=== PATIENT | female | born 1945 | race Caucasian/White ===

== ENCOUNTER → 2019-05-03 | Outpatient (CLI) | payer MEDICARE, OTHER | END | disposition home or self-care (01) | LOC: RAH 12:39 | PROVIDERS: ATTEND Family Medicine | DX: R92.1 Mammographic calcification found on diagnostic imaging of breast (principal) | CPT/HCPCS: 77066 ==

== ENCOUNTER → 2020-05-21 | Outpatient (CLI) | payer MEDICARE | END | disposition home or self-care (01) | LOC: RAH 07:51 | PROVIDERS: ATTEND Family Medicine | DX: Z12.31 Encounter for screening mammogram for malignant neoplasm of breast (principal) | CPT/HCPCS: 77067 ==

== ENCOUNTER → 2022-06-22 | Outpatient (CLI) | payer MEDICARE | END | disposition home or self-care (01) | LOC: OIH 10:24 | PROVIDERS: ATTEND Student in an Organized Health Care Education/Training Program | DX: R06.02 Shortness of breath (principal) | CPT/HCPCS: 93306 ==

== ENCOUNTER → 2022-08-04 | Outpatient (CLI) | payer MEDICARE ==
[~2022-08-04] MED LIST: IOHEXOL 350 MG/ML 100ML INFUS..BTL IV ONE
== END | disposition home or self-care (01) ==
LOC: RAH 09:49
PROVIDERS: ATTEND Student in an Organized Health Care Education/Training Program
DX: R07.9 Chest pain, unspecified (principal)
CPT/HCPCS: 75574; Q9967

== ENCOUNTER → 2024-07-05 | Outpatient (CLI) | payer MEDICARE | END | disposition home or self-care (01) | LOC: RAH 08:56 | PROVIDERS: ATTEND Family Medicine | DX: Z12.31 Encounter for screening mammogram for malignant neoplasm of breast (principal) | CPT/HCPCS: 77067 ==

== ENCOUNTER → 2024-12-14 | Outpatient (CLI) | payer MEDICARE ==
--- NOTE | 2024-12-18 17:01 | HMCSR ---
APPROVED REPORT Laterality: Bilateral Indications R09.89 Doppler Spectral Velocity Analysis PSV / EDVPSV / EDV ECA (R) 68 / cm/sECA (L) 56 / cm/s dICA (R) 85 / 35 cm/sdICA (L) 68 / 28 cm/s Angy (R) 59 / 20 cm/smICA (L) 43 / 16 cm/s pICA (R) 58 / 18 cm/spICA (L) 62 / 18 cm/s dCCA (R) 59 / 16 cm/sdCCA (L) 64 / 20 cm/s mCCA (R) 77 / 18 cm/smCCA (L) 95 / 28 cm/s pCCA (R) 77 / 19 cm/spCCA (L) 109 / 21 cm/s Vert (R) 42 / cm/sVert (L) 51 / cm/s Subl. (R) 106 / cm/sSubl. (L) 108 / cm/s ICA/CCA 1.10ICA/CCA 0.62 Technologist Impression Mildl plaque noted in the bilateral carotids. KAT and LICA appear patent without hemodynamic significance. Bilateral vertebral arteries appear antegrade. Arrhythmia seen. Conclusion Mildl plaque noted in the bilateral carotids. KAT and LICA appear patent without hemodynamic significance. Bilateral vertebral arteries appear antegrade. Arrhythmia seen. Conclusion Mildl plaque noted in the bilateral carotids. KAT and LICA appear patent without hemodynamic significance. Bilateral vertebral arteries appear antegrade. Arrhythmia seen.
== END | disposition home or self-care (01) ==
LOC: SHCH 10:34
PROVIDERS: ATTEND Student in an Organized Health Care Education/Training Program
DX: I65.23 Occlusion and stenosis of bilateral carotid arteries (principal); R09.89 Other specified symptoms and signs involving the circulatory and respiratory systems
CPT/HCPCS: 93880

== ENCOUNTER → 2025-07-17 | Outpatient (CLI) | payer MEDICARE, OTHER | END | disposition home or self-care (01) | LOC: RAH 10:52 | PROVIDERS: ATTEND Family Medicine | DX: Z12.31 Encounter for screening mammogram for malignant neoplasm of breast (principal) | CPT/HCPCS: 77067 ==